=== PATIENT | male | born 1965 | race Caucasian/White ===

== ENCOUNTER 2023-09-17 00:08 | Emergency (ER) | payer BC, SELFPAY ==
[2023-09-17 00:09] VITALS: BMI 23.6
[2023-09-17 00:13] VITALS: BP 123/76
--- NOTE | 2023-09-17 01:00 | ED.GENMED ---
History of Present Illness
<RISSA Santana - Last Filed: 09/17/23 06:14>
General
Chief Complaint: Eye Problems
Time Seen by Provider: 09/17/23 00:35
Travel History
Have you had any contact with someone who has COVID-19?: No
Do you have any symptoms of coronavirus? Fever > 100 degrees, chills, cough, shortness of breath, sore throat, loss of taste or smell, muscle aches, or headache?: No
History of Present Illness
History of Present Illness:
This is a 57 yo male presenting for R eye discomfort. He states he was working with [employer] at [employer] and felt a foreign body sensation after a piece of metal struck his R eye
Past History
<RISSA Santana - Last Filed: 09/17/23 06:14>
Past History
ED Past Medical History: None
ED Past Surgical History: None
Social History
Tobacco: Non-smoker
Alcohol: Occasional
Drug: None
Personal: Single
Living: alone
Employment: Employed
Phy Exam
<RISSA Santana - Last Filed: 09/17/23 06:14>
General Physical Exam
General Presentation: well appearing
General age: appears stated age
Eye Exam
Eye Exam: PERRL, EOMI and other (Corneal abrasion noted on fluorescein stain)
Course
<RISSA Santana - Last Filed: 09/17/23 06:14>
Orders/Labs/Results
Orders:
Orders
09/17/23 00:40
Visual Acuity- Treatment ONCE
Nursing to Place Non Medication Order As Directed
Physician Order: eye box
Above order entered?: Yes
09/17/23 01:09
Tetanus/Diphth/Acelpertussis [Adacel] 0.5 ml IM .ONCE ONE
09/17/23 01:15
Gentamicin [Genoptic 0.3% Eye Drops] See Dose Instructions OPHTH NOW STA
09/17/23 01:45
Tetracaine HCl [Tetracaine 0.5% Ophthalmic Solution] 1 drop .ROUTE .STK-MED ONE
09/17/23 01:46
Fluorescein Sodium [Ful-[place]] 2 mg .ROUTE .STK-MED ONE
Purified Water Eye Wash [Dacriose Eye Wash Solution] 120 ml .ROUTE .STK-MED ONE
Vital Signs
Initial and Last Documented VS:
Initial Vital Signs
Temp Pulse Resp BP Pulse Ox
97.8 F 79 18 123/76 99
09/17/23 00:13 09/17/23 00:13 09/17/23 00:13 09/17/23 00:13 09/17/23 00:13
Last Documented Vital Signs
Temp Pulse Resp BP Pulse Ox
97.8 F 76 16 111/81 97
09/17/23 00:13 09/17/23 01:45 09/17/23 01:45 09/17/23 01:45 09/17/23 01:45
<Capo Dao, DO - Last Filed: 09/17/23 01:16>
Orders/Labs/Results
Orders:
Orders
09/17/23 00:40
Visual Acuity- Treatment ONCE
Nursing to Place Non Medication Order As Directed
Physician Order: eye box
Above order entered?: Yes
09/17/23 01:09
Tetanus/Diphth/Acelpertussis [Adacel] 0.5 ml IM .ONCE ONE
09/17/23 01:15
Gentamicin [Genoptic 0.3% Eye Drops] See Dose Instructions OPHTH NOW STA
09/17/23 01:45
Tetracaine HCl [Tetracaine 0.5% Ophthalmic Solution] 1 drop .ROUTE .STK-MED ONE
09/17/23 01:46
Fluorescein Sodium [Ful-[place]] 2 mg .ROUTE .STK-MED ONE
Purified Water Eye Wash [Dacriose Eye Wash Solution] 120 ml .ROUTE .STK-MED ONE
Vital Signs
Initial and Last Documented VS:
Initial Vital Signs
Temp Pulse Resp BP Pulse Ox
97.8 F 79 18 123/76 99
09/17/23 00:13 09/17/23 00:13 09/17/23 00:13 09/17/23 00:13 09/17/23 00:13
Last Documented Vital Signs
Temp Pulse Resp BP Pulse Ox
97.8 F 76 16 111/81 97
09/17/23 00:13 09/17/23 01:45 09/17/23 01:45 09/17/23 01:45 09/17/23 01:45
<RISSA Santana - Last Filed: 09/17/23 06:14>
MDM/Problems Addressed
Differential Diagnosis Includes:
Corneal abrasion visualized on fluorescein stain
MDM/Problems Addressed:
Genoptic eye drops
Adacel
<RISSA Santana - Last Filed: 09/17/23 06:14>
*Critical Care Note
Total Time (30-74mins, 75-104mins- exclusive of procedures): Not Applicable
ED Attending Note
<RISSA Santana - Last Filed: 09/17/23 06:14>
-
Portions of this chart may have been created with voice recognition software.� Occasional wrong word or��sound alike� substitutions may have occurred due to the inherent limitations of voice recognition software.
<Capo Dao DO - Last Filed: 09/17/23 01:16>
ED Attending Note
Patient seen and examined by attending physician: Yes
I performed the substantive portion of visit, reviewed & personally made and approve the management plan that is documented in note by myself or STEPHANI.: Yes
ED Attending Note:
57-year-old male presents with right eye pain. 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 He states that it was a piece of metal. He denies any foreign body as the metal was solid. He is concerned for a scratch. Patient did
flush his eye copiously before coming to the emergency department. Unsure of his last tetanus status. Denies any other injury. Reports no visual acuity changes. Patient was seen in conjunction with the PA student. I have reviewed and agree with
the history and treatment plan presented. On my independent physical exam, patient is awake, alert, and oriented x3, minimal acute distress. Right eye examined. Visual acuity is normal. Using tetracaine and fluorescein, the eye was prepared.
There is a small corneal abrasion in the right eye at the 7 o'clock position. Lids were everted and there is no evidence of foreign body.
Diagnosis corneal abrasion
Patient does not wear contact lenses so he will get Genoptic eyedrops.
Discharge Plan
Departure
Patient Disposition: Home (Routine Discharge)
Date of Disposition: 09/17/23
Time of Disposition: 01:15
Patient with high blood pressure during this ER visit?: Yes
Condition: Good
Discharge Problem:
Corneal abrasion
Instructions: Corneal Abrasion (DC), How to Use Eye Drops
Prescriptions:
No Action
amoxicillin-pot clavulanate 875 MG/125 MG tablet
1 tab PO BID Qty: 20 0RF
Referrals:
Joshua Ortiz DO [Family Provider] -
Doroteo Avelar MD [Active] - Follow up in 2-3 days
Activity Restrictions/Additional Instructions:
It was a pleasure meeting you and taking part in your care. We hope for your continued healing and wellness.
Please read discharge instructions in their entirety. However, they are for general education and may not describe your exact diagnosis at discharge. Information on your ER visit and medical conditions were discussed with you along with appropriate
follow up information...
If indicated, please take your medications as instructed and indicated on discharge paperwork.
Please schedule a follow up appointment as directed. Call to schedule an appointment
Please return to the emergency department with ANY change in, persisting, or worsening of symptoms. If any of your symptoms do not improve, or persist, or become more severe within 6-12 hours, please return to the emergency department for further
care.
Please return to the emergency department if you develop a headache, neck pain/stiffness, fever greater than 100.4F, chest pain, shortness of breath, persistent nausea, vomiting, slurred speech, difficulty walking, numbness/tingling, weakness, signs
of infection or any other symptoms that are worrisome to you.
If you have any questions or concerns please do not hesitate to call the Hospital at or E-mail me directly at [email or web address]
Interventions
Interventions:
*Risk Screen - Suicide Last Done: 09/17/23 00:16
*General Assessment Last Done: 09/17/23 00:16
*Neglect/Abuse Screening Last Done: 09/17/23 00:16
ED- Fall Risk Assessment Last Done: 09/17/23 00:49
*ED COVID-19 Vaccine History Last Done: 09/17/23 00:49
*Nursing Disposition Last Done: 09/17/23 01:45
Discharge Date and Time
Discharge Date/Time: 09/17/23 01:45
Print Language: CITIZEN [place]
[2023-09-17] MEDS: ADACEL 0.5 ML IM (01:33)
[2023-09-17] MEDS: GENOPTIC 0.3% EYE DROPS 1 DROP OPHTH (01:38)
[2023-09-17 01:45] VITALS: BP 111/81
== END 2023-09-17 01:45 | disposition home or self-care (01) ==
LOC: EMR 00:08
PROVIDERS: EMERGENCY PHYSICIAN Student in an Organized Health Care Education/Training Program; FAMILY PHYSICIAN Family Medicine
DX: S05.01XA Injury of conjunctiva and corneal abrasion without foreign body, right eye, initial encounter (principal); X58.XXXA Exposure to other specified factors, initial encounter; Z23 Encounter for immunization
CPT/HCPCS: 99282; 90471; 90715